=== PATIENT | male | born 1935 | race Caucasian/White ===

== ENCOUNTER 2019-01-04 00:05 | Emergency (ER) | payer MEDICARE ==
[2019-01-04] MEDS ORDERED: LIDOCAINE HCL 1% 20 ML VIAL ONE (02:24)
[2019-01-04] MEDS ORDERED: FENTANYL CITRATE PF 50 MCG/1 ML 2ML VIAL ONE (03:22)
== END 2019-01-04 04:37 | disposition home or self-care (01) ==
LOC: EDH 00:05
DX: S52.592A Other fractures of lower end of left radius, initial encounter for closed fracture (principal); S01.01XA Laceration without foreign body of scalp, initial encounter; Z88.6 Allergy status to analgesic agent; W01.0XXA Fall on same level from slipping, tripping and stumbling without subsequent striking against object, initial encounter; Y93.01 Activity, walking, marching and hiking; Y92.89 Other specified places as the place of occurrence of the external cause; Y99.8 Other external cause status
CPT/HCPCS: 12002; 29125; 70450; 72125; 73110; 96374; 99284; J3010